=== PATIENT | female | born 1990 | race Asian ===

== ENCOUNTER 2024-08-23 09:08 | Emergency (ER) | payer BC, SELFPAY ==
[2024-08-23 09:09] VITALS: BMI 34.0
[2024-08-23 09:43] VITALS: BP 136/81; PULSE 98; RESP 19; TEMP 36.8; O2SAT 98
--- NOTE | 2024-08-23 10:08 | XR_ITS ---
Examination: Complete OB ultrasound greater than 14 weeks, twin A Exam date and time: August 23, 2024 at 0241 hours Indications: Onset pelvic pain today Findings: Twin gestations. Viable twin A, cephalic presentation Cardiac motion 150 BPM Placenta anterior grade 1 Umbilical cord insertion 3 vessel seen Amniotic fluid adequate Cervix 4.1 cm Right ovary 3.0 cm arterial flow Left ovary 3.0 cm arterial flow Composite estimated gestational age based on BPD, head circumference, abdominal circumference, femur length is 16 weeks 6 days Estimated weight 220.6 g. Survey of intracranial anatomy, spinal anatomy, abdominal anatomy, four-chamber heart performed with no abnormalities identified. Impression: Viable twin A, cephalic presentation. Examination: Complete OB ultrasound greater than 14 weeks, twin B Date and time of exam: August 23, 2024 0241 hours INDICATIONS: Pelvic pain today Findings: Twin gestations Viable twin B breech presentation Cardiac motion 147 BPM Placenta posterior grade 1 Umbilical cord insertion 3 vessel seen Amniotic fluid volume adequate Right ovary 3.0 cm arterial flow Left ovary 3.0 cm arterial flow Composite estimated gestational age based on BPD, head circumference, abdominal circumference, femur length is 15 weeks 4 days Estimated weight 125.1 g. Survey of intracranial anatomy, spinal anatomy, abdominal anatomy, four-chamber heart performed with no abnormalities identified. Impression: Viable twin B breech presentation.
--- NOTE | 2024-08-23 10:09 | PD.EDRME ---
Rapid Medical Screening Exam RME Arrival date/time: 08/23/24 09:08 34-year-old female with twin gestation conceived with IVF presents emergency department complains of pelvic pain Chief Complaint: Vaginal Bleeding Vital signs: Vital Signs Temperature 98.3 F 08/23/24 09:43 Pulse Rate 98 08/23/24 09:43 Respiratory Rate 19 08/23/24 09:43 Blood Pressure 136/81 H 08/23/24 09:43 Pulse Oximetry (%) 98 08/23/24 09:43 Oxygen Delivery Method Room Air 08/23/24 09:43
[2024-08-23 10:29] LABS: Basophils % (Auto) 0 % (0-2.5); Eosinophils # (Auto) 0.1 Thou/mm3 (0.0-0.5); Eosinophils % (Auto) 1 % (0-10); Hematocrit 34.7 % (36.0-46.0); Hemoglobin 11.2 g/dL (12.0-16.0); Immature Granulocytes % (Auto) 1 % (0-0); Immature Granulocytes Auto 0.11 Thou/mm3 (0.00-0.00); Lymphocytes # (Auto) 2.3 Thou/mm3 (1.0-4.8); Lymphocytes % (Auto) 22 % (10-50); Mean Corpuscular HGB Conc 32.3 g/dl (31.0-37.0); Mean Corpuscular Hemoglobin 24.8 pg (25.0-35.0); Mean Corpuscular Volume 77 fL (80-100); Monocytes # (Auto) 0.6 Thou/mm3 (0.0-0.8); Monocytes % (Auto) 6 % (0-12); Neutrophils # (Auto) 7.6 Thou/mm3 (1.8-7.7); Neutrophils % (Auto) 71 % (37-80); Nucleated Red Blood Cell % 0 /100 WBC (0); Platelet Count 392 Thou/mm3 (140-440); RDW Standard Deviation 40.6 fL (36.4-46.3); Red Blood Count 4.52 Miln/mm3 (4.00-5.20); White Blood Count 10.8 Thou/mm3 (3.6-11.0)
[2024-08-23 10:49] LABS: Alanine Aminotransferase 87 U/L (10-49); Albumin, Serum 3.8 gm/dL (3.5-5.0); Albumin/Globulin Ratio 1.2 (1.2-2.2); Alkaline Phosphatase 47 U/L (46-116); Anion Gap 9 (7-16); Aspartate Amino Transferase 57 U/L (0-34); BUN/Creatinine Ratio 10 Ratio (12-20); Bilirubin,Total 0.3 mg/dL (0.3-1.2); Blood Urea Nitrogen < 5 mg/dL (9-23); Calcium 9.2 mg/dL (8.3-10.6); Calcium (Corrected) 9.4 mg/dL (8.5-10.1); Carbon Dioxide 24.5 mMol/L (20.0-31.0); Chloride 103 mMol/L (98-107); Creatinine (Component) 0.5 mg/dL (0.6-1.3); Estimated Creatinine Clearance 150.6 mL/min (>60); Globulin 3.2 gm/dL (2.3-3.5); Glucose 95 mg/dL (74-106); Osmolality,Calculated 269 (275-295); Potassium 3.3 mMol/L (3.4-5.1); Sodium 136 mMol/L (136-145); eGFR > 60 See Note
[2024-08-23 11:23] LABS: Beta HCG,Quantitative 85339 mIU/mL (<5.0)
[2024-08-23 13:06] VITALS: BP 140/87; PULSE 93; RESP 12; TEMP 36.7; O2SAT 100
--- NOTE | 2024-08-23 13:06 | PD.EDVAGBL ---
ED OB Contraction Preg RMI/HPI General Chief complaint: Vaginal Bleeding Stated complaint: 15WK PREG, VAG BLEED X3DAY Time Seen by Provider: 08/23/24 11:27 Source: patient Arrival date/time: 08/23/24 09:08 34-year-old female with no known medical history presents to the emergency room with a chief complaint of bilateral lower 3 out of 10 pelvic pain, and vaginal spotting when she wipes. Patient is currently having twins that were conceived with IVF. Mode of arrival: ambulatory Limitations: no limitations RME / HPI RME / HPI Narrative: 08/23/24 09:08 34-year-old female with twin gestation conceived with IVF presents emergency department complains of pelvic pain Related Data Previous Rx's ?Medication ?Instructions ?Recorded Hydrocodone/Acetaminophen * (NORCO 1 tab PO Q4H PRN pain #14 tabs 04/28/15 5/325 *) Mag Hyd/Alum Hyd/Simeth SUSP * 1 tbsp PO Q4HR #148 mL 07/24/17 (MAALOX SUSP *) omeprazole 20 mg capsule,delayed 20 mg PO QDAY ##30 07/24/17 release ciprofloxacin HCl 500 mg tablet 500 mg PO BID #14 tabs 07/29/21 (Cipro) meloxicam 7.5 mg tablet 7.5 mg PO QDAY #10 tabs 07/29/21 Allergies Allergy/AdvReac Type Severity Reaction Status Date / Time NKA* Allergy Uncoded 08/23/24 09:10 Review of Systems Review of Systems Systems Reviewed: All systems reviewed, normal except as documented Constitutional Constitutional: Reports system reviewed and no additional complaints, except as documented, Denies fatigue, Denies fever(s), Denies headache(s) and Denies weakness Eyes Eyes: Reports system reviewed and no additional complaints, except as documented, Denies blurry vision and Denies change in vision ENT Ears, Nose, Mouth, and Throat: Reports system reviewed and no additional complaints, except as documented, Denies otalgia, Denies headache(s), Denies nasal congestion, Denies throat swelling and Denies vertigo Cardiovascular Cardiovascular: Reports system reviewed and no additional complaints, except as documented, Denies chest pain, Denies dyspnea and Denies dyspnea on exertion Respiratory Respiratory: Reports system reviewed and no additional complaints, except as documented, Denies chest congestion, Denies cough, Denies dyspnea, Denies dyspnea on exertion and Denies wheezing Gastrointestinal Gastrointestinal: Reports system reviewed and no additional complaints, except as documented, Denies abdominal pain, Denies cramping, Denies nausea and Denies vomiting Genitourinary Genitourinary: Reports system reviewed and no additional complaints, except as documented, Reports abnormal vaginal bleeding and Reports pelvic pain Musculoskeletal Musculoskeletal: Reports system reviewed and no additional complaints, except as documented and Denies back pain Integumentary/Breasts Skin/Breast: Reports system reviewed and no additional complaints, except as documented and Denies wounds Neurologic Neurologic: Reports system reviewed and no additional complaints, except as documented, Denies confusion, Denies headache(s), Denies lack of coordination, Denies vertigo and Denies weakness Psychiatric Psychiatric: Reports system reviewed and no additional complaints, except as documented, Denies anxiety, Denies confusion, Denies depression, Denies paranoia, Denies suicidal ideation and Denies tactile hallucinations Endocrine Endocrine: Reports system reviewed and no additional complaints, except as documented and Denies fatigue Hematologic/Lymphatic Hematologic/Lymphatic: Reports system reviewed and no additional complaints, except as documented and Denies lymphadenopathy Allergic/Immunologic Allergic/Immunologic: Reports system reviewed and no additional complaints, except as documented, Denies throat swelling, Denies urticaria and Denies wheezing Past Medical History Social History SMOKING STATUS: Never smoker ED Exam General Limitations: Present no limitations General appearance: Present alert and in no apparent distress Head Head exam: Present atraumatic, normocephalic and normal inspection Eye Eye exam: Present normal appearance, PERRL and EOMI ENT ENT exam: Present normal exam, normal oropharynx and mucous membranes moist Neck Neck exam: Present normal inspection, full ROM and trachea midline Chest Chest inspection: Present normal inspection and symmetric chest wall rise Respiratory Respiratory exam: Present normal lung sounds bilaterally Cardiovascular Cardiovascular exam: Present regular rate, normal rhythm and normal heart sounds Abdominal Exam Abdominal exam: Present soft and normal bowel sounds Extremities Exam Extremities exam: Present normal inspection and full ROM Back Exam Back exam: Present normal inspection and full ROM Neurological Exam Neurological exam: Present alert, oriented X3 and CN II-XII intact Psychiatric Psychiatric exam: Present normal affect and normal mood Skin Skin exam: Present warm, dry, intact and normal color Course Quality Measures none Orders Category Date Time Status US OB >= 14 wk fetus add gest Stat Exams 08/23/24 10:08 Completed ABO/RH Type Stat Lab 08/23/24 10:17 Completed Beta HCG,Quantitative Stat Lab 08/23/24 10:17 Completed CBC Stat Lab 08/23/24 10:17 Completed Comprehensive Metabolic Panel Stat Lab 08/23/24 10:17 Completed Vital Signs Vital signs: Vital Signs Temperature 98.3 F 08/23/24 09:43 Pulse Rate 98 08/23/24 09:43 Respiratory Rate 19 08/23/24 09:43 Blood Pressure 136/81 H 08/23/24 09:43 Pulse Oximetry (%) 98 08/23/24 09:43 Oxygen Delivery Method Room Air 08/23/24 09:43 Vaginal Bleeding MDM Narrative MDM Narrative: 34-year-old female with no known medical history presents to the emergency room with a chief complaint of bilateral lower 3 out of 10 pelvic pain, and vaginal spotting when she wipes. Patient is currently having twins that were conceived with IVF. Patient is hemodynamically stable and in no apparent distress The patient is presenting to the emergency room with 3 out of 10 bilateral pelvic pain. She denies any dysuria or hematuria. She states she is here because she had a with IVF and she is concerned for the due to her vaginal spotting. Hemoglobin and hematocrit are within normal limits OB ultrasound was completed and at this time shows a viable twin 1 has a breech presentation the other has a cephalic presentation. heart tones are 147 and 150 bpm. The patient hCG levels at this time are 89,339. Patient was discharged and educated to follow-up with her DIGITAL MARKETING PROGRAM MANAGER and return to the emergency room for any evidence of worsening signs or symptoms Patient data External records reviewed:: [facility] previous records Clinical information provided by:: patient Social determinants that could affect healthcare access:: none Patient has the following chronic illnesses:: No chronic illness How is presenting disease/condition affected by chronic disease/condition?: no chronic disease Evaluation data The following diagnostics were reviewed and interpreted by me:: lab results and radiology exam(s) Lab and/or radiology exams considered but not ordered:: Labs and radiology exams considered and ordered Interpretation Summary: OB ultrasound-Findings: Twin gestations. Viable twin A, cephalic presentation Cardiac motion 150 BPM Placenta anterior grade 1 Umbilical cord insertion 3 vessel seen Amniotic fluid adequate Cervix 4.1 cm Right ovary 3.0 cm arterial flow Left ovary 3.0 cm arterial flow Composite estimated gestational age based on BPD, head circumference, abdominal circumference, femur length is 16 weeks 6 days Estimated weight 220.6 g. Survey of intracranial anatomy, spinal anatomy, abdominal anatomy, four-chamber heart performed with no abnormalities identified. Impression: Viable twin A, cephalic presentation. Examination: Complete OB ultrasound greater than 14 weeks, twin B Date and time of exam: August 23, 2024 0241 hours INDICATIONS: Pelvic pain today Findings: Twin gestations Viable twin B breech presentation Cardiac motion 147 BPM Placenta posterior grade 1 Umbilical cord insertion 3 vessel seen Amniotic fluid volume adequate Right ovary 3.0 cm arterial flow Left ovary 3.0 cm arterial flow Composite estimated gestational age based on BPD, head circumference, abdominal circumference, femur length is 15 weeks 4 days Estimated weight 125.1 g. Survey of intracranial anatomy, spinal anatomy, abdominal anatomy, four-chamber heart performed with no abnormalities identified. Impression: Viable twin B breech presentation. Medications / Prescriptions Medications or Prescriptions considered but not ordered:: No medication given Medication administrations:: No medication given Consultations Consultation(s) initiated? (list below): No Diagnosis Vaginal Bleeding Differential Diagnosis: threatened , dysfunctional uterine bleeding, ectopic without intrauterine , vaginal bleeding and other (Vaginal spotting) Most likely diagnosis given after review of the tests above:: Vaginal spotting Admission Indicated Admission indicated?: not indicated Admission Request Was there a request for admission?: No Disposition Plan Disposition Plan: Discharge Discharge Attestation Discharge Attestation: The patient and all family members were given an opportunity to ask questions and understood the discharge instructions. Discharge instructions specifically effects, indications for sooner follow up or return to the emergency department, and the expected course of current diagnosis. Patient condition: Stable Discharge Plan Plan Patient Disposition: HOME (Self Care) Disposition Comment: Stable Prescriptions/Referrals Prescriptions/Med Rec: No Action Hydrocodone/Acetaminophen * (NORCO 5/325 *) 1 TAB tablet 1 tab PO Q4H PRN (Reason: pain) Qty: 14 0RF omeprazole 20 MG capsule,delayed release(DR/EC) 20 mg PO QDAY Qty: 30 0RF Mag Hyd/Alum Hyd/Simeth SUSP * (MAALOX SUSP *) 148 ML ORAL.SUSP 1 tbsp PO Q4HR Qty: 148 0RF ciprofloxacin HCl [Cipro] 500 mg tablet 500 mg PO BID Qty: 14 0RF meloxicam 7.5 mg tablet 7.5 mg PO QDAY Qty: 10 0RF Referrals: No Primary/Family,Physician [Primary Care Provider] - In 1 week Problem List Clinical Impression: Vaginal spotting, Pelvic cramping Patient/Caregiver Discharge Instructions Education Materials: ED Abdominal Pain, Early Additional Instructions: Please follow-up with your DIGITAL MARKETING PROGRAM MANAGER in the next 24 to 48 hours. Your ultrasound results were completed and at this time your is in good standing at 15 weeks 4 days. Your hCG levels today are 85,339. For any evidence of worsening signs or symptoms please return to the emergency room immediately Print Language: Bulgarian Stand Alone Forms: [employer] Award Info., Patient Portal Info Letter PA/EMETERIO Supervising Physician KIM/EMETERIO Supervising Physician: Dr Jacobo
== END 2024-08-23 13:10 | disposition home or self-care (01) ==
PROVIDERS: Nurse Practitioner Primary Care; Emergency Provider Emergency Medicine
DX: O26.852 Spotting complicating pregnancy, second trimester (principal); O30.002 Twin pregnancy, unspecified number of placenta and unspecified number of amniotic sacs, second trimester; O32.1XX2 Maternal care for breech presentation, fetus 2; Z3A.15 15 weeks gestation of pregnancy
CPT/HCPCS: 36415; 76805; 76810; 80053; 84702; 85025; 86900; 86901; 99284

== ENCOUNTER 2024-10-16 21:38 | Inpatient (IN) | payer BC, MEDICAID, SELFPAY ==
[2024-10-16] VITALS (20 sets, daily range): BP systolic 118; BP diastolic 79; PULSE 83–102; RESP 18–98; TEMP 36.8; O2SAT 83–100; BMI 37.5
[2024-10-16] MEDS: RINGERS LACTATED 1000 ML 1,000 ML 999 ML IV (22:21)
--- NOTE | 2024-10-16 22:42 | XR_ITS ---
Examination: age complete after 12 weeks TECHNIQUE: Limited transabdominal sonographic images pelvis INDICATIONS: Pelvic cramping and vaginal bleeding today FINDINGS: Twin gestations Baby A cephalic presentation Cardiac motion 155 BPM Placenta anterior grade 0 A buckle cord insertion 3 vessel seen Amniotic fluid volume adequate bladder kidneys stomach spine unremarkable Cervix is open, fluid-filled, transverse dimension 8.1, 7.19 cm in length Ovaries obscured by bowel gas Estimated gestational age 23 weeks 3 days estimated weight 584 g Baby B, breech presentation Cardiac motion 136 BPM Placenta posterior grade 0 Umbilical cord insertion 3 vessel seen Amniotic fluid adequate bladder kidneys stomach spine seen Estimated gestational age 23 weeks 2 days Estimated weight 579.8 g Ovaries obscured by bowel gas IMPRESSION: Viable twin gestations The cervix is open fluid-filled transverse dimension 8.1 cm
[2024-10-16] MEDS: RINGERS LACTATED 1000 ML 1,000 ML 125 ML IV (23:40)
[2024-10-17] VITALS (130 sets, daily range): BP systolic 90–143; BP diastolic 55–78; PULSE 79–149; RESP 10–23; TEMP 36.5–36.6; O2SAT 90–100
[2024-10-17] MEDS: Ampicillin Inj 2,000 MG in SODIUM CHLORIDE 0.9% (POP) 100 ML 200 MG IV (00:41)
[2024-10-17] MEDS: NIFEdipine 10 MG CAPSULE 20 MG PO (00:43)
[2024-10-17] MEDS: BETAMET ACET/BETAMET NA PH (Celestone) 6 MG/ML VIAL 12 MG IM (00:46)
[2024-10-17] MEDS: fentaNYL CIT INJ 50 mCg/ML AMP 2ML 100 MCG IV ×3 (01:23→07:02)
[2024-10-17 01:43] LABS: Basophils % (Auto) 0 % (0-2.5); Eosinophils # (Auto) 0.1 Thou/mm3 (0.0-0.5); Eosinophils % (Auto) 1 % (0-10); Hemoglobin 10.7 g/dL (12.0-16.0); Immature Granulocytes % (Auto) 1 % (0-0); Immature Granulocytes Auto 0.13 Thou/mm3 (0.00-0.00); Lymphocytes # (Auto) 2.3 Thou/mm3 (1.0-4.8); Lymphocytes % (Auto) 18 % (10-50); Mean Corpuscular HGB Conc 32.4 g/dl (31.0-37.0); Mean Corpuscular Volume 80 fL (80-100); Monocytes % (Auto) 8 % (0-12); Neutrophils # (Auto) 9.1 Thou/mm3 (1.8-7.7); Neutrophils % (Auto) 72 % (37-80); Nucleated Red Blood Cell % 0 /100 WBC (0); Platelet Count 398 Thou/mm3 (140-440); RDW Standard Deviation 57.4 fL (36.4-46.3); Red Blood Count 4.11 Miln/mm3 (4.00-5.20); White Blood Count 12.6 Thou/mm3 (3.6-11.0)
[2024-10-17 01:56] LABS: Amphetamine/Metham Scrn,Ur OB Negative (Negative); Benzoylecgonine Screen, Ur OB Negative (Negative); Opiate Screen,Urine OB Negative (Negative); THC Screen,Urine OB Negative (Negative)
[2024-10-17] MEDS: Ampicillin Inj 1,000 MG in SODIUM CHLORIDE 0.9% (Popper) 50 ML 50 MG IV (04:41)
--- NOTE | 2024-10-17 06:28 | ESHP_ITS ---
Documentation for date of: 10/17/24 OB Labor/Induct. HPI History of Present Illness Chief complaint: Contractions and bleeding : 2 Para: 0 Term pregnancies: 0 Living children: 0 History of Abortions: Spontaneous and Elective: 1 History of Vaginal deliveries: 0 ADI: 02/10/25 Gestational Age (weeks): 23 Gestational Age (days): 3 History of present illness: Patient is a 34-year-old -0-1-0 at 23 weeks and 3 days who presented to labor and delivery triage with contractions and vaginal bleeding at 10 PM last night. Patient is a IVF , she states that Thursday morning at 9 AM she had intercourse and after that she started having vaginal bleeding which got progressively heavier during the day. By about 8 PM she started passing large clots. Patient presented in the evening and when she was evaluated she was noted to be 8 cm dilated with membranes and parts were visible in the vaginal canal. Bedside ultrasound also showed twin gestation with baby A measuring 584 g consistent with 23 weeks and 3 days AUA and baby B weighing 579 g with estimated ultrasound age of 23 weeks and 2 days. Patient had her IVF done in [place] and she receives care at [facility]. None of her records are available for review at this time History of Present Adequate Care: Yes Review of Systems Review of Systems Systems Reviewed: All systems reviewed, normal except as documented Meds Home Medications and Allergies Allergies Allergy/AdvReac Type Severity Reaction Status Date / Time NKA* Allergy Uncoded 10/16/24 21:48 OB Exam Physical Exam Vital signs: Temp Pulse Resp BP Pulse Ox 98.3 F 111 H 18 129/77 98 10/16/24 21:48 10/17/24 06:09 10/16/24 21:48 10/17/24 06:09 10/17/24 06:25 Constitutional Constitutional: no acute distress Routine HEENT Exam Head: Present normocephalic and atraumatic Eye: Present EOMI and PERRL ENT: Present mucous membranes moist Routine Neck Exam Neck: Present supple and trachea midline Routine Cardiovascular Exam Cardiovascular: Present RRR Routine Abdominal Exam Abdominal: Present soft and normoactive bowel sounds Detailed Labor and Delivery Exam Dilation (cm): 8 Effacement (%): 100 Cervix position: mid station: 0 Consistency: soft Presentation: Vertex Routine Extremities Exam Extremities: Present full ROM Routine Skin Exam Skin: Present intact, dry and warm Routine Neurological Exam Neurological: Present alert, oriented X3 and CN II-XII intact Routine Psychiatric Exam Psychiatric: Present normal affect and normal thought process OB Results Labs 10/17/24 00:44 Labs: Short CBC 10/17/24 Range/Units 00:44 WBC 12.6 H (3.6-11.0) Thou/mm3 Hgb 10.7 L (12.0-16.0) g/dL Hct 33.0 L (36.0-46.0) % Plt Count 398 (140-440) Thou/mm3 OB Assessment & Plan Assessment and Plan (1) Twin : Status: Acute (2) Conceived by in vitro fertilization: Status: Acute (3) labor in second trimester: Status: Acute Assessment and plan: 34-year-old -0-1-0 at 23 weeks and 3 days with advanced cervical dilatation/ labor with threatened delivery Called the transfer center at [facility] and spoke with the maternal- medicine on-call Dr. Jim Reviewed all findings with him including patient's clinical status and ultrasound and available labs. After detailed review [facility] recommended to start patient on all protocol and prepare for delivery. Start patient on magnesium for neuroprotection, betamethasone, antibiotics for GBS prophylaxis and Procardia for toco lysis. Reviewed all findings with on-call lead miner blasting and transfer team's and route
[2024-10-17] MEDS: NIFEdipine 10 MG CAPSULE PO (06:49)
[2024-10-17] MEDS: Magnesium Sulfate 4 GM Ivpb 4 GM/50 ML BAG IV (07:02)
[2024-10-17] MEDS: MAGNESIUM SULF 20 GM IVPB 20 GM/500 ML BAG IV (07:09)
--- NOTE | 2024-10-17 07:37 | ESPR_ITS ---
Documentation for date of: 10/17/24 OB Labor Progress Note Pain Control Comments: Patient having regular contraction pain. She is a 34-year-old G1, P0 with twin IVF . She has had gastric bypass in the past. Father of baby is at bedside. She is in full-blown labor 23-2/7 weeks with a bulging bag of membranes and 8 cm when signed out to me at 7 in the morning. No records are available on the chart. She is an IVF from [place] and her care is through [facility]. Pelvic Exam Dilation (cm): 8 Effacement (%): 100 station: 0 Amniotic membrane status: Bulging Comments: Twin IVF breech transverse both girls a 584 g to be 579 g both babies are 23-2/7 weeks Contractions Monitor mode: External Contraction frequency: 3 Contraction intensity: Moderate Status status: Category l Comments: Appropriate NSTs for 23-week fetus Assessment and Plan Plan OB labor note: Comments: called by Dr. Hillman at 640 in the morning. I took over care at 7 AM. [facility] NICU transport team called at 7 in the morning. Awaiting arrival of transport team at this time. Patient is consented and the OR ready. She understands the risk of bleeding, infection, blood transfusion, damage to bowel ,bladder ,blood vessels, other organs and prolonged hospital stay should further complications occur. She understands her babies are very premature and the export agent has discussed this with her.
[2024-10-17] MEDS: FAMOTIDINE INJ 10 MG/ML VIAL 2 ML 20 MG IV (07:57)
[2024-10-17 10:13] LABS: Basophils % (Auto) 0 % (0-2.5); Eosinophils % (Auto) 0 % (0-10); Hematocrit 32.3 % (36.0-46.0); Immature Granulocytes % (Auto) 1 % (0-0); Immature Granulocytes Auto 0.24 Thou/mm3 (0.00-0.00); Lymphocytes # (Auto) 1.8 Thou/mm3 (1.0-4.8); Lymphocytes % (Auto) 9 % (10-50); Mean Corpuscular Volume 84 fL (80-100); Monocytes # (Auto) 0.4 Thou/mm3 (0.0-0.8); Monocytes % (Auto) 2 % (0-12); Neutrophils % (Auto) 87 % (37-80); Nucleated Red Blood Cell % 0 /100 WBC (0); Platelet Count 402 Thou/mm3 (140-440); RDW Standard Deviation 59.8 fL (36.4-46.3); Red Blood Count 3.85 Miln/mm3 (4.00-5.20); White Blood Count 19.4 Thou/mm3 (3.6-11.0)
[2024-10-17] MEDS: OXYTOCIN in NS 20 units 20 UNIT/1,000 ML BAG 125 UNIT IV ×2 (10:23→16:35)
[2024-10-17 10:46] LABS: Magnesium < 0.5 mg/dL (1.6-2.6)
[2024-10-17 10:48] LABS: Syphilis Nonreactive (Nonreactive)
[2024-10-17 14:42] LABS: Magnesium 2.2 mg/dL (1.6-2.6)
[2024-10-17] MEDS: IBUPROFEN TAB 400 MG TABLET 800 MG PO (14:49)
--- NOTE | 2024-10-17 18:21 | ESOP_ITS ---
Operative Note - CLIENT SERVICES ASSOCIATE Procedure Date of procedure: 10/17/24 ( performed at 0900) Procedure Performed: Emergent primary LTCS Indication: Patient is a 34-year-old G1, P0 IVF with twins through [place]. She usually sees [facility]. Was admitted little after midnight with bleeding. An ultrasound revealed a dilated cervix. A sterile speculum by Dr Hillman revealed a bulging bag of water and the patient to be 8 cm dilated. The patient was too unstable for transfer and was consented for primary low- transverse section. Due to extreme prematurity, [facility] was called for transport and was performed once they were in house. Pre-Op diagnosis: 1. Intrauterine at 23-3/7 weeks 2. IVF twin 3. Vertex/ breech presentation 4. Active labor, 8 cm dilated, bulging bag of water Post-Op diagnosis: Same Anesthesia type: Spinal Procedure description: After obtaining informed consent, the patient was brought back to the operating room and spinal anesthesia administered. She was then prepped and draped in the dorsal supine position with a leftward tilt in a normal sterile fashion. A Ni catheter had been inserted while the patient was still on the floor. The patient was given 2 g of Ancef by anesthesia. A Pfannenstiel skin incision was made with a scalpel, and carried down to the underlying fascia. The fascia was incised in the midline and the fascial incision extended laterally using Zamudio scissors. The superior aspect the fascia was grasped with Lori clamps, and the underlying rectus muscles dissected off using blunt and sharp dissection. This was repeated in the inferior aspect the incision. The rectus muscles were in the midline and the peritoneum entered bluntly with the surgeon's fingers. This was extended superiorly and inferiorly with blunt dissection with the surgeons fingers with good visualization of the bladder. The bladder blade was inserted and due to the fact the lower uterine segment was bulging, a low- transverse incision was made on the patient's uterus. The bag of baby A was was ruptured and clear fluid was noted, Baby A was delivered atraumatically in a vertex presentation. The cord was clamped and cut and baby was handed off to the waiting pediatric staff. The bag of baby B was ruptured and again clear fluid was noted. Baby B was delivered atraumatically in a vertex presentation. The cord was clamped and cut and the infant was handed off to the waiting pediatric staff. Cord gases were then sent on both babies followed by cord blood on both babies. The placentas were both sent down to pathology. The uterus was then exteriorized and cleared of all clots and debris. The uterine incision was closed using 0 Monocryl in a running locked fashion. Excellent hemostasis was noted. The uterus was returned to the patient's abdominal cavity, and copious irrigation carried out with warm normal saline. The uterine incision was reexamined several times and noted to be hemostatic. After ensuring the rectus muscles were hemostatic these were reapproximated the midline using running suture of 0 Monocryl. The fascia was closed with 0 Vicryl in a running fashion. The subcutaneous tissues were then irrigated and found to be hemostatic. These were reapproximated using a running suture of 3-0 plain. The skin was closed with a subcuticular suture of 4-0 Monocryl. The patient tolerated the procedure well, sponge, lap, needle and instrument counts were correct x 2. The patient went to the recovery area awake and in stable condition. Of note both babies were in the NICU being stabilized and intubated and were transferred to [place]. Fluids: crystalloid Fluid amount (mL): 3,000 Urine output (mL): 500 Specimen: other (Placenta) Estimated blood loss (ml): 600 Findings: Baby A: Liveborn female, Vtx, no nuchal cord or mec. APGARS 2,3,7. Weight 550 gm. Blood gases: Umbilical A: pH 7.39, BE -4.3, Umbilical Vein pH 7.46 BE -4.8 Baby B: Liveborn female, Vtx, + loose nuchal. no mec. APGARS 5, 7, 9. Weight 620 gm. Blood gases: Umbilical A: 7.33 BE -3.7, Umbilical Vein pH 7.39 BE -3.3 Tubes uterus ovaries bilaterally. Ovaries possible PCOS appearance Complications: none Surgical staff Operation Date: 10/17/24 08:45 Case Staff Surgeon: Jon ([facility])Mel FIRE RANGE TECHNICIAN: Chirag Arriaga RN First Assistant: Mariel Herrmann Diagnosis Discharge Diagnosis (1) Conceived by in vitro fertilization: Status: Acute (2) Twin : Status: Acute (3) labor in second trimester: Status: Acute (4) 23 weeks gestation of : Status: Acute Problem List Completed Was Problem List Reviewed/Reconciled?: Yes (3) labor in second trimester Qualifiers: labor delivery status: without delivery Qualified Code(s): O60.02 - labor without delivery, second trimester
[2024-10-17] MEDS: HYDROcodone/APAP 5/325 TABLET 1 TAB PO (20:16)
[2024-10-17] MEDS: RINGERS LACTATED 1000 ML 1,000 ML 100 ML IV (23:54)
[2024-10-18 00:09] VITALS: BP 93/62; PULSE 80; RESP 18; TEMP 36.6; O2SAT 97
[2024-10-18] MEDS: IBUPROFEN TAB 400 MG TABLET 800 MG PO ×3 (00:55→16:01)
[2024-10-18 03:52] VITALS: BP 95/62; PULSE 79; RESP 18; TEMP 36.6; O2SAT 96
[2024-10-18 06:13] LABS: Basophils % (Auto) 0 % (0-2.5); Eosinophils % (Auto) 0 % (0-10); Hematocrit 27.1 % (36.0-46.0); Immature Granulocytes % (Auto) 1 % (0-0); Immature Granulocytes Auto 0.15 Thou/mm3 (0.00-0.00); Lymphocytes # (Auto) 2.6 Thou/mm3 (1.0-4.8); Lymphocytes % (Auto) 16 % (10-50); Mean Corpuscular HGB Conc 31.4 g/dl (31.0-37.0); Mean Corpuscular Hemoglobin 26.2 pg (25.0-35.0); Mean Corpuscular Volume 83 fL (80-100); Monocytes # (Auto) 1.1 Thou/mm3 (0.0-0.8); Monocytes % (Auto) 7 % (0-12); Neutrophils # (Auto) 12.3 Thou/mm3 (1.8-7.7); Neutrophils % (Auto) 76 % (37-80); Nucleated Red Blood Cell % 0 /100 WBC (0); Platelet Count 340 Thou/mm3 (140-440); RDW Standard Deviation 59.3 fL (36.4-46.3); Red Blood Count 3.25 Miln/mm3 (4.00-5.20); White Blood Count 16.2 Thou/mm3 (3.6-11.0)
[2024-10-18 06:25] LABS: Hemoglobin 8.5 g/dL (12.0-16.0)
[2024-10-18 07:20] VITALS: BP 100/68; PULSE 88; RESP 20; TEMP 36.5; O2SAT 98
--- NOTE | 2024-10-18 08:44 | ESPR_ITS ---
Subjective Subjective Interval history: Delivery type: at 23 weeks due to cervical incompetence, twin with history of IVF Patient doing well this morning. No acute complaints. Ambulating, tolerating p.o. and voiding without difficulty. HTN/Pre-Eclampsia screen: No chest pain, shortness of breath, headache, visual changes, epigastric or right upper quadrant pain. Breast-feeding, lochia diminishing. Bowel: Flatus+/ BM+ Exam Vital Signs Temp Pulse Resp BP Pulse Ox O2 Del Method O2 Flow Rate 97.7 F 88 20 100/68 98 Room Air 2 10/18/24 07:20 10/18/24 07:20 10/18/24 07:20 10/18/24 07:20 10/18/24 07:20 10/18/24 07:20 10/17/24 12:00 Constitutional Constitutional: no acute distress Routine HEENT Exam Head: Present normocephalic and atraumatic Eye: Present EOMI and PERRL ENT: Present mucous membranes moist Routine Neck Exam Neck: Present supple and trachea midline Routine Respiratory Exam Respiratory: Present chest non-tender, lungs clear, normal breath sounds and no resp distress Routine Cardiovascular Exam Cardiovascular: Present RRR Routine Abdominal Exam Abdominal: Present soft and normoactive bowel sounds Routine Extremities Exam Extremities: Present full ROM Routine Skin Exam Skin: Present intact, dry and warm Routine Neurological Exam Neurological: Present alert, oriented X3 and CN II-XII intact Routine Psychiatric Exam Psychiatric: Present normal affect and normal thought process Objective Labs 10/18/24 04:40 Labs: Laboratory Results - last 24 hr 10/17/24 10/17/24 10/17/24 00:44 08:20 08:57 WBC 19.4 H D RBC 3.85 L Hgb 10.0 L Hct 32.3 L MCV 84 MCH 26.0 MCHC 31.0 RDW Std Deviation 59.8 H Plt Count 402 Neut % (Auto) 87 H Lymph % (Auto) 9 L [place] % (Auto) 2 Eos % (Auto) 0 Baso % (Auto) 0 Neut # (Auto) 17.0 H Lymph # (Auto) 1.8 [place] # (Auto) 0.4 Eos # (Auto) 0.0 Baso # (Auto) 0.0 Immature Gran # (Auto) 0.24 H Absolute Nucleated RBC 0.00 Immature Gran % 1 H Nucleated RBC % 0 Magnesium < 0.5 L* Syphilis Serology Nonreactive Blood Type O Positive Antibody Screen NEGATIVE Crossmatch See Detail Blood Bank Wristband ID Yes 10/17/24 10/18/24 13:19 04:40 WBC 16.2 H RBC 3.25 L Hgb 8.5 L Hct 27.1 L MCV 83 MCH 26.2 MCHC 31.4 RDW Std Deviation 59.3 H Plt Count 340 D Neut % (Auto) 76 Lymph % (Auto) 16 [place] % (Auto) 7 Eos % (Auto) 0 Baso % (Auto) 0 Neut # (Auto) 12.3 H Lymph # (Auto) 2.6 [place] # (Auto) 1.1 H Eos # (Auto) 0.0 Baso # (Auto) 0.0 Immature Gran # (Auto) 0.15 H Absolute Nucleated RBC 0.00 Immature Gran % 1 H Nucleated RBC % 0 Magnesium 2.2 Syphilis Serology Blood Type Antibody Screen Crossmatch Blood Bank Wristband ID Assessment & Plan Problem List (1) Conceived by in vitro fertilization: Status: Acute (2) Twin : Status: Acute (3) labor in second trimester: Status: Acute (4) 23 weeks gestation of : Status: Acute (5) delivery delivered: Problem details: POD#1 1. Continue routine post operative care 2. Transition to PO meds. 3. Encourage to ambulate 4. Anticipate discharge home tomorrow 5. Home care instructions reviewed Status: Acute Time Spent With Patient Time: Total time spent is greater than 50% in coordination of care (as documented) at patient's floor/unit and/or counseling patient:
[2024-10-18 11:00] VITALS: BP 103/65; PULSE 72; RESP 20; TEMP 36.4; O2SAT 96
[2024-10-18 14:30] VITALS: BP 105/70; PULSE 89; RESP 20; TEMP 36.9; O2SAT 97
--- NOTE | 2024-10-18 15:05 | PC.NURSE ---
RN OFFERED TDAP VACCINE BUT PATIENT CHANGED HER MIND AND DECLINED ADMINISTRATION AT DISCHARGE.
== END 2024-10-18 16:02 | disposition home or self-care (01) | DRG 786 ==
LOC: S4SX 10-17 08:33 → S4NX 10-17 08:51
PROVIDERS: Admitting Provider Obstetrics & Gynecology; Visit Provider Obstetrics & Gynecology
PROC: (CPT 59514; principal; 2024-10-17 08:30)
DX: O30.002 Twin pregnancy, unspecified number of placenta and unspecified number of amniotic sacs, second trimester (principal); O34.32 Maternal care for cervical incompetence, second trimester; O60.12X1 Preterm labor second trimester with preterm delivery second trimester, fetus 1; O60.12X2 Preterm labor second trimester with preterm delivery second trimester, fetus 2; O32.1XX2 Maternal care for breech presentation, fetus 2; Z3A.23 23 weeks gestation of pregnancy; O99.844 Bariatric surgery status complicating childbirth; Z37.2 Twins, both liveborn; O69.81X2 Labor and delivery complicated by cord around neck, without compression, fetus 2
CPT/HCPCS: 36415; 59899; 76810; 80307; 83735; 85025; 86780; 86850; 86900; 86901; 86923; A4649; G0378; J0290; J0702; J1885; J2250; J2274; J2371; J2590; J3010; J3475; J3490; J7050; J7120; A9270; J2270